=== PATIENT | female | born 1990 | race Caucasian/White ===

== ENCOUNTER 2022-07-16 07:03 | Day surgery (SDC) | payer BC ==
[2022-07-14 15:38] VITALS: BMI 33.9
[2022-07-16] MEDS ORDERED: Fentanyl 100 MCG/2 ML VIAL ONE (09:29)
[2022-07-16] MEDS ORDERED: Dexamethasone 4 mg/ml Vial ONE (09:29)
[2022-07-16] MEDS ORDERED: Ondansetron PF 4 MG/2 ML Vial ONE (09:29)
[2022-07-16] MEDS ORDERED: PROPOFOL 20 ML ONE (09:29)
[2022-07-16] MEDS ORDERED: Ketorolac Tromethamine 30 MG/ML VIAL ONE (09:29)
[2022-07-16] MEDS ORDERED: Lidocaine 1% PF 5 ML VIAL ONE (09:29)
[2022-07-16] MEDS ORDERED: Midazolam HCl 2 mg/2 ml Vial ONE (09:29)
[2022-07-16] MEDS ORDERED: CEFAZOLIN 2 GM VIAL ONE (09:30)
[2022-07-16] MEDS ORDERED: Methylergonovine 0.2 MG/ML VIAL ONE (10:16)
[2022-07-16] MEDS ORDERED: Promethazine HCl 25 MG/ML VIAL IM/IV PRN (11:00)
[2022-07-16] MEDS ORDERED: Ondansetron HCl/PF 4 MG/2 ML Vial IVP PRN (11:00)
[2022-07-16] MEDS ORDERED: HYDROcodone/Acetaminophen 5/325 mg Tablet PO PRN ×2 (11:00)
[2022-07-16] MEDS ORDERED: Methylergonovine 0.2 MG TAB PO SCH (11:15)
== END 2022-07-16 12:10 | disposition home or self-care (01) ==
LOC: CSHSDC 07:03
PROVIDERS: ATTEND Obstetrics & Gynecology
PROC: 10A07ZZ Abortion of Products of Conception, Via Natural or Artificial Opening (ICD-10-PCS; principal; 2022-07-16)
DX: O02.1 Missed abortion (principal); Z79.899 Other long term (current) drug therapy
CPT/HCPCS: 36415; 86850; 86900; 86901; 88305; J1100; J1885; J2210; J2250; J2405; J2704; J3010